=== PATIENT | female | born 1955 | race Caucasian/White ===

== ENCOUNTER 2018-12-30 09:33 | Outpatient (CLI) | payer MEDICARE, OTHER ==
--- NOTE | 2019-01-09 13:18 | MMO ---
Bilateral MAMMO Bilat Screen [facility]. CLINICAL HISTORY: Patient is 63 years old and is seen for screening. The patient has no family history of breast cancer. The patient has no personal history of cancer. VIEWS: The views performed were: bilateral craniocaudal with tomosynthesis and bilateral mediolateral oblique with tomosynthesis. FILMS COMPARED: The present examination has been compared to prior imaging studies performed at [facility] on 04/05/2007, 08/06/2010, 08/07/2011, 08/08/2012, 07/14/2016 and 08/03/2017. MAMMOGRAM FINDINGS: The breasts are heterogeneously dense, which could obscure a lesion on mammography. Benign calcifications are noted bilaterally. There are no suspicious masses, calcifications or areas of architectural distortion. IMPRESSION: FINDINGS IN BOTH BREASTS ARE BENIGN. A ROUTINE FOLLOW-UP MAMMOGRAM IN 1 YEAR IS RECOMMENDED. THE RESULTS OF THIS EXAM WERE SENT TO THE PATIENT. ACR BI-RADS Category 2 - Benign finding MAMMOGRAPHY NOTE: 1. A negative mammogram report should not delay a biopsy if a dominant of clinically suspicious mass is present. 2. Approximately 10% to 15% of breast cancers are not detected by mammography. 3. Adenosis and dense breasts may obscure an underlying neoplasm.
== END 2018-12-30 09:34 | disposition home or self-care (01) ==
LOC: BICMAMMO 09:33
PROVIDERS: ATTEND Family Medicine
DX: Z12.31 Encounter for screening mammogram for malignant neoplasm of breast (principal)
CPT/HCPCS: 77063; 77067

== ENCOUNTER 2020-10-29 11:57 | Outpatient (CLI) | payer MEDICARE, MEDICAID ==
--- NOTE | 2020-10-29 13:39 | MMO ---
Bilateral MAMMO Bilat Screen [facility]. CLINICAL HISTORY: Patient is 65 years old and is seen for screening. The patient has no family history of breast cancer. The patient has no personal history of cancer. VIEWS: The views performed were: bilateral craniocaudal with tomosynthesis and bilateral mediolateral oblique with tomosynthesis. FILMS COMPARED: The present examination has been compared to prior imaging studies performed at [facility] on 07/14/2016, 08/03/2017 and 12/30/2018. This study has been interpreted with the assistance of computer-aided detection. MAMMOGRAM FINDINGS: The breasts are heterogeneously dense, which could obscure a lesion on mammography. There are stable benign appearing calcifications seen in both breasts. There are also vascular calcifications. There are no suspicious masses, suspicious calcifications, or new areas of architectural distortion. IMPRESSION: THERE IS NO MAMMOGRAPHIC EVIDENCE OF MALIGNANCY. A ROUTINE FOLLOW-UP MAMMOGRAM IN 1 YEAR IS RECOMMENDED. THE RESULTS OF THIS EXAM WERE SENT TO THE PATIENT. ACR BI-RADS Category 2 - Benign finding MAMMOGRAPHY NOTE: 1. A negative mammogram report should not delay a biopsy if a dominant of clinically suspicious mass is present. 2. Approximately 10% to 15% of breast cancers are not detected by mammography. 3. Adenosis and dense breasts may obscure an underlying neoplasm. Reported by: TAB KHANNA MD Electonically Signed: [id number]
== END 2020-10-29 11:58 | disposition home or self-care (01) ==
LOC: BICMAMMO 11:57
PROVIDERS: ATTEND Family Medicine
DX: Z12.31 Encounter for screening mammogram for malignant neoplasm of breast (principal)
CPT/HCPCS: 77063; 77067

== ENCOUNTER 2022-05-21 19:01 | Emergency (ER) | payer MEDICARE, MEDICAID | END 2022-05-21 19:39 | disposition home or self-care (01) | LOC: ERS 19:01 | DX: R21 Rash and other nonspecific skin eruption (principal); E03.9 Hypothyroidism, unspecified; K21.9 Gastro-esophageal reflux disease without esophagitis; E78.5 Hyperlipidemia, unspecified; I10 Essential (primary) hypertension | CPT/HCPCS: 99282 ==

== ENCOUNTER 2022-10-27 11:06 | Outpatient (CLI) | payer OTHER, MEDICAID | END 2022-10-27 11:07 | disposition home or self-care (01) | LOC: BICMAMMO 11:06 | PROVIDERS: ATTEND Family Medicine | DX: Z12.31 Encounter for screening mammogram for malignant neoplasm of breast (principal) | CPT/HCPCS: 77063; 77067 ==

== ENCOUNTER 2023-12-14 09:20 | Outpatient (CLI) | payer OTHER, MEDICAID | END 2023-12-14 09:21 | disposition home or self-care (01) | LOC: BICMAMMO 09:20 | PROVIDERS: ATTEND Family Medicine | DX: N64.59 Other signs and symptoms in breast (principal) | CPT/HCPCS: 77066; G0279 ==

== ENCOUNTER 2024-11-08 07:11 | Outpatient (CLI) | payer OTHER ==
[2024-11-08] MEDS ORDERED: Regadenoson 0.4 MG/5 ML SYRINGE ONE (09:40)
== END 2024-11-08 07:12 | disposition home or self-care (01) ==
LOC: NM 07:11
PROVIDERS: ATTEND Family Medicine
DX: R07.89 Other chest pain (principal)
CPT/HCPCS: 78452; 93017; A9502; J2785 ×2

== ENCOUNTER 2025-05-23 10:58 | Outpatient (CLI) | payer OTHER, MEDICAID | END 2025-05-23 10:59 | disposition home or self-care (01) | LOC: BICCT 10:58 | PROVIDERS: ATTEND Orthopaedic Surgery | DX: M17.12 Unilateral primary osteoarthritis, left knee (principal); M25.462 Effusion, left knee ==

== ENCOUNTER 2025-05-29 06:30 | Inpatient (IN) | payer OTHER, MEDICAID ==
[2025-05-22 10:29] VITALS: BMI 36.6
[2025-05-29] MEDS ORDERED: Bupivacaine 0.25% HCL 30 ML VIAL ONE (07:19)
[2025-05-29] MEDS ORDERED: Ropivacaine 0.5% HCl/PF (150 MG/30 ML VIAL) ONE (07:37)
[2025-05-29] MEDS ORDERED: Tranexamic Acid 1,000 MG/10 ML VIAL ONE (07:37)
[2025-05-29] MEDS ORDERED: Vancomycin HCl 1.5 GM VIAL ONE (07:38)
[2025-05-29] MEDS ORDERED: CEFAZOLIN 2 GM VIAL ONE (07:54)
[2025-05-29] MEDS ORDERED: Ondansetron PF 4 MG/2 ML Vial IVP PRN ×2 (08:30→11:06)
[2025-05-29] MEDS ORDERED: Ropivacaine 0.2% 550 ML 550 ML NERVE BLCK SCH (08:30)
[2025-05-29] MEDS ORDERED: PROPOFOL 20 ML ONE (08:43)
[2025-05-29] MEDS ORDERED: Lidocaine 1% PF 5 ML VIAL ONE (08:43)
[2025-05-29] MEDS ORDERED: Ondansetron PF 4 MG/2 ML Vial ONE (09:44)
[2025-05-29] MEDS ORDERED: HYDROmorphone 0.5 MG/0.5 ML SYRINGE ONE (10:39)
[2025-05-29] MEDS ORDERED: diphenhydrAMINE 25 MG CAP PO PRN ×2 (11:06)
[2025-05-29] MEDS ORDERED: Acetaminophen 325 MG TAB PO PRN (11:06)
[2025-05-29] MEDS: HYDROcodone/Acetaminophen 10/325 mg Tablet PO PRN (13:13)
[2025-05-29] MEDS ORDERED: clonazePAM 1 MG TAB PO SCH (21:00)
[2025-05-29] MEDS ORDERED: Lumateperone Tosylate [Caplyta] 42 MG Capsule PO SCH (21:00)
[2025-05-29] MEDS ORDERED: QUEtiapine 300 MG TAB PO SCH (21:00)
[2025-05-29] MEDS ORDERED: Non-Formulary Item 1 EACH (Lamotrigine [Lamictal] 200 MG Tablet) PO SCH (21:00)
[2025-05-29] MEDS ORDERED: Non-Formulary Item 1 EACH (Lovastatin [Lovastatin] 40 MG Tablet) PO SCH (21:00)
[2025-05-29] MEDS ORDERED: LUMATEPERONE TOSYLATE 42 MG PO SCH (21:00)
[2025-05-29] MEDS ORDERED: Non-Formulary Item 1 EACH (Desvenlafaxine [Desvenlafaxine Er] 100 MG Tab.Er.24h) PO SCH (21:00)
[2025-05-29] MEDS: Aspirin 81 mg Enteric Coated Tablet PO SCH (21:07)
[2025-05-29] MEDS: Topiramate 100 MG TAB PO SCH (21:07)
[2025-05-29] MEDS: Senokot S 8.6-50 MG TAB PO SCH (21:08)
[2025-05-29] MEDS: Ferrous Gluconate 324 MG TAB PO SCH (21:09)
[2025-05-29] MEDS: lamoTRIgine 100 MG TAB PO SCH (21:09)
[2025-05-29] MEDS: QUEtiapine 100 MG TAB PO SCH (21:09)
[2025-05-29] MEDS: clonazePAM 1 MG TAB PO SCH (21:11)
[2025-05-30 06:21] LABS: Hematocrit 31.7 % (36.0-47.0); Hemoglobin 9.6 g/dL (12.0-16.0); Mean Corpuscular Hemoglobin 29.4 pg (27.0-31.0); Mean Corpuscular Volume 96.9 fL (78.0-98.0); Platelet Count 227 10x3/uL (130-400); Red Blood Cell (RBC) Count 3.27 mill/uL (4.20-5.40); White Blood Cell (WBC) Count 7.46 10x3/uL (4.8-10.8)
[2025-05-30] MEDS ORDERED: Non-Formulary Item 1 EACH (Esomeprazole Magnesium [Nexium] 40 MG Cap) PO SCH (08:00)
[2025-05-30] MEDS: Losartan 25 MG TAB PO SCH (08:44)
[2025-05-30] MEDS: Multivitamin W/ Minerals 1 TAB PO SCH (08:45)
[2025-05-30] MEDS: Pantoprazole 40 MG DR.TAB PO SCH (08:45)
[2025-05-30] MEDS ORDERED: Levothyroxine 175 MCG TAB PO SCH (09:00)
[2025-05-31 06:02] LABS: Hematocrit 28.5 % (36.0-47.0); Hemoglobin 8.8 g/dL (12.0-16.0); Mean Corpuscular Hemoglobin 29.2 pg (27.0-31.0); Mean Corpuscular Volume 94.7 fL (78.0-98.0); Platelet Count 214 10x3/uL (130-400); Red Blood Cell (RBC) Count 3.01 mill/uL (4.20-5.40); White Blood Cell (WBC) Count 6.27 10x3/uL (4.8-10.8)
[2025-05-31] MEDS: HYDROcodone/Acetaminophen 10/325 mg Tablet PO PRN (08:57)
[2025-05-31 13:33] VITALS: BP 125/74; TEMP 98.4
== END 2025-05-31 14:25 | disposition home or self-care (01) | DRG 470 ==
LOC: SDC 06:30 → SURG B 11:27 → OBSVTOIN 05-31 10:29
PROVIDERS: ADMIT Orthopaedic Surgery; ATTEND Orthopaedic Surgery
PROC: 0SRD0JA Replacement of Left Knee Joint with Synthetic Substitute, Uncemented, Open Approach (ICD-10-PCS; principal; 2025-05-31)
PROC: 3E03329 Introduction of Other Anti-infective into Peripheral Vein, Percutaneous Approach (ICD-10-PCS; 2025-05-31)
DX: M17.12 Unilateral primary osteoarthritis, left knee (principal); D64.9 Anemia, unspecified; F32.A Depression, unspecified; F41.9 Anxiety disorder, unspecified; I10 Essential (primary) hypertension; G51.0 Bell's palsy; K21.9 Gastro-esophageal reflux disease without esophagitis; E78.5 Hyperlipidemia, unspecified; Z86.16 Personal history of COVID-19; G47.00 Insomnia, unspecified; Z90.710 Acquired absence of both cervix and uterus; Z90.49 Acquired absence of other specified parts of digestive tract; Z98.41 Cataract extraction status, right eye; Z98.42 Cataract extraction status, left eye; Z88.8 Allergy status to other drugs, medicaments and biological substances; Z79.82 Long term (current) use of aspirin; Z79.899 Other long term (current) drug therapy
CPT/HCPCS: 36415; 85027; 96365; 96376; A4306; C1713; C1776; C1889; G0378; J0169; J0665; J1100; J1171; J2250; J2405; J2704; J2795; J3010; J7030